=== PATIENT | male | born 2000 | race Caucasian/White ===

== ENCOUNTER 2022-12-07 10:01 | Emergency (ER) | payer OTHER ==
[~2022-12-07] VITALS: Ht 167.6 cm; Wt 68.0 kg
[2022-12-07] MEDS ORDERED: BUPRENORPHINE HCL 2 MG TAB.SUBL SL ONE ×5 (11:00→12:03)
[2022-12-07 12:31] VITALS: BP 121/71; TEMP 98; O2SAT 100
== END 2022-12-07 12:31 ==
LOC: ER 10:08
DX: F11.23 Opioid dependence with withdrawal (principal); F17.200 Nicotine dependence, unspecified, uncomplicated